=== PATIENT | male | born 1930 | race Caucasian/White ===

== ENCOUNTER → 2018-01-10 17:36 | Outpatient (CLI) | payer MEDICARE ==
[2016-02-18 14:15] VITALS: BMI 23.2
[~2018-01-10 17:36] MED LIST: ARIXTRA SC; ATIVAN0.5 MG PO; BAYER CHEWABLE81 MG PO; COLACE100 MG PO; FLOMAX0.4 MG PO; HYDROCODON-ACE1 EAC7 PO; LISINOPRIL2.5 MG PO; PROTONIX40 MG PO; PROVENTIL/2.5 MG/3 M INH; SALINE NASAL SP45 ML NS; SYNTHROID88 MCG PO; TRIPLE ANTIBI28.4 GM TP; ZOCOR40 MG PO
[2018-01-10 18:48] LABS: APPEARANCE CLEAR (CLEAR); BILIRUBIN NEGATIVE (NEGATIVE); COLOR DK YELLOW (YELLOW); GLUCOSE NEGATIVE (NEGATIVE); KETONE NEGATIVE (NEGATIVE); NITRITE NEGATIVE (NEGATIVE); PROTEIN NEGATIVE (NEGATIVE); SPECIFIC GRAVITY 1.015 (1.005-1.020); UROBILINOGEN NORMAL (NORMAL)
== END | disposition home or self-care (01) ==
LOC: D.LABREF 17:36
PROVIDERS: Family Medicine
DX: R30.0 Dysuria (principal)